=== PATIENT | male | born 1995 | race Caucasian/White ===

== ENCOUNTER 2018-01-15 08:32 | Emergency (ER) | payer MEDICAID ==
[~2018-01-15] VITALS: Ht 175.3 cm; Wt 100.0 kg
[2018-01-15] MEDS ORDERED: LIDOCAINE 1% 10 ML VIAL INJ ONE (09:00)
[2018-01-15 09:10] VITALS: BP 147/86
[2018-01-15] MEDS ORDERED: PERTUSS(ACELL),DIPH,TET VAC/PF 0.5 ML VIAL IM ONE (09:15)
== END 2018-01-15 09:59 | disposition home or self-care (01) ==
LOC: EMS 08:33
DX: S61.210A Laceration without foreign body of right index finger without damage to nail, initial encounter (principal); R03.0 Elevated blood-pressure reading, without diagnosis of hypertension; W25.XXXA Contact with sharp glass, initial encounter; Y93.89 Activity, other specified; Y92.89 Other specified places as the place of occurrence of the external cause; Y99.8 Other external cause status
CPT/HCPCS: 12002; 90471; 90715; 99283; J3490

== ENCOUNTER 2018-01-20 10:40 | Emergency (ER) | payer MEDICAID ==
[~2018-01-20] VITALS: Ht 175.3 cm; Wt 88.6 kg
[2018-01-20 12:36] VITALS: BP 127/85
== END 2018-01-20 12:40 | disposition home or self-care (01) ==
LOC: EMS 10:41
DX: S61.210D Laceration without foreign body of right index finger without damage to nail, subsequent encounter (principal); Z48.02 Encounter for removal of sutures; X58.XXXD Exposure to other specified factors, subsequent encounter